=== PATIENT | female | born 1980 ===

== ENCOUNTER 2024-04-30 05:14 | Day surgery (SDC) | payer BC ==
[2024-04-29 16:35] VITALS: BMI 27.6
[2024-04-30] MEDS: ceFAZolin SODIUM 1 GM VIAL IVPB ONE (11:50)
[2024-04-30] MEDS: LIDOCAINE HCL 1%, 10 MG/ML (20ML VIAL) NR ONE ×2 (12:00)
[2024-04-30] MEDS: ACETAMINOPHEN 1000 MG/100 ML BAG IVPB PRN (13:18)
[2024-04-30 15:20] VITALS: BP 132/74; PULSE 65; RESP 18; TEMP 97.5
== END 2024-04-30 16:05 | disposition home or self-care (01) ==
LOC: JASU-SURG 05:14
PROVIDERS: ATTEND Surgery
PROC: 0HBU0ZX Excision of Left Breast, Open Approach, Diagnostic (ICD-10-PCS; principal; 2024-04-30 11:30)
DX: N62 Hypertrophy of breast (principal); N60.12 Diffuse cystic mastopathy of left breast; N60.32 Fibrosclerosis of left breast; N60.82 Other benign mammary dysplasias of left breast; R92.8 Other abnormal and inconclusive findings on diagnostic imaging of breast
CPT/HCPCS: 76098-TC-FY; 81025; 88307-TC; 88342-TC; 94760; J0131